=== PATIENT | male | born 1970 | race Hispanic/Latino ===

== ENCOUNTER 2020-03-13 14:35 | Emergency (ER) | payer SELFPAY ==
[2020-03-13] MEDS ORDERED: TETANUS/DIPHTHERIA TOXOID [ADULT] 0.5 ML VIAL IM ONE (14:45)
== END 2020-03-13 15:22 | disposition home or self-care (01) ==
LOC: EDH 14:35
DX: S61.214A Laceration without foreign body of right ring finger without damage to nail, initial encounter (principal); I10 Essential (primary) hypertension; X58.XXXA Exposure to other specified factors, initial encounter; Y93.89 Activity, other specified; Y92.098 Other place in other non-institutional residence as the place of occurrence of the external cause; Y99.8 Other external cause status
CPT/HCPCS: 90471; 90714

== ENCOUNTER 2020-03-14 01:38 | Emergency (ER) | payer SELFPAY | END 2020-03-14 03:23 | disposition home or self-care (01) | LOC: EDH 01:38 | DX: S61.204A Unspecified open wound of right ring finger without damage to nail, initial encounter (principal); I10 Essential (primary) hypertension; E78.00 Pure hypercholesterolemia, unspecified; E07.9 Disorder of thyroid, unspecified; W26.0XXA Contact with knife, initial encounter; Y93.89 Activity, other specified; Y92.89 Other specified places as the place of occurrence of the external cause; Y99.8 Other external cause status ==

== ENCOUNTER 2020-03-15 01:07 | Emergency (ER) | payer SELFPAY | END 2020-03-15 01:31 | LOC: EDH 01:07 | DX: S61.205D Unspecified open wound of left ring finger without damage to nail, subsequent encounter (principal); E78.00 Pure hypercholesterolemia, unspecified; I10 Essential (primary) hypertension; X58.XXXD Exposure to other specified factors, subsequent encounter ==